=== PATIENT | female | born 1965 | race Caucasian/White ===

== ENCOUNTER → 2018-10-26 | Outpatient (CLI) | payer OTHER ==
[~2018-10-26] MED LIST: LIDOCAINE 1% (MPF) 5 ML VIAL ONE
== END | disposition home or self-care (01) ==
LOC: U/S 09:45
PROVIDERS: ATTEND Otolaryngology Otolaryngology/Facial Plastic Surgery
DX: R59.9 Enlarged lymph nodes, unspecified (principal); D17.0 Benign lipomatous neoplasm of skin and subcutaneous tissue of head, face and neck
CPT/HCPCS: 10005; 88307; 88341; 88342; Z7610